=== PATIENT | male | born 1995 | race Caucasian/White ===

== ENCOUNTER 2017-01-06 04:14 | Emergency (ER) | payer BC, OTHER ==
[~2017-01-06] VITALS: Ht 175.3 cm; Wt 70.0 kg
[~2017-01-06 04:14] MED LIST: HMLI SC
[2017-01-06 04:19] VITALS: TEMP 36.8; Ht 175.3 cm; Wt 70.0 kg
[2017-01-06] MEDS ORDERED: SODIUM CHLORIDE 0.9% 500ML 500 ML IV STA (04:33)
[2017-01-06] MEDS ORDERED: MoRPHine SULFATE 4 MG/ML 1 ML CARP\\VIAL IV STA (04:33)
[2017-01-06] MEDS ORDERED: ONDANSETRON INJ 2 MG/ML 2 ML VIAL IV STA (04:33)
--- NOTE | 2017-01-06 04:39 | EMERGENCY ROOM VISIT NOTE ---
History Report prepared by Karo: Marguerite Peña Under the Supervision of: Dr. Giovanna Thompson M.D. First contact with patient: 04:28 Chief Complaint: RECTAL PAIN Stated Complaint: LARGE LUMP NEAR ANUS History of Present Illness The patient is a 21 year old male who presents to the Emergency Room with complaints of sudden rectal pain beginning shortly prior to arrival. The patient states that he has a large lump near his rectum, but that it is not draining. He states that he had the bump 4 days ago, but that the pain worsened prior to arrival. He rates the pain at a 6/10. He states that he has had a rectal abscess before. He denies having fevers. Source of History: patient Onset: shortly prior to arrival Position: other (rectum) Symptom Intensity: rated at a 6/10 Timing: other (sudden ) Associated Symptoms: No fevers Review of Systems See HPI for pertinent positives & negatives. A total of 10 systems reviewed and were otherwise negative. Past Medical & Surgical Medical Problems: (1) Diabetes Family History Diabetes mellitus Gallbladder disease Heart disease Hypertension Social History Smoking Status: Never Smoker Housing Status: lives with roommate Current/Historical Medications Scheduled Insulin Glargine (Lantus Solostar), 40 UNITS SQ QPM Insulin Lispro (Human) (Humalog), SQ AC Allergies Coded Allergies: No Known Allergies (Unverified , 01/06/17) Physical Exam Vital Signs Date Time Temp Pulse Resp B/P (MAP) Pulse Ox O2 Delivery O2 Flow Rate FiO2 01/06/17 05:58 79 15 136/80 97 Room Air 01/06/17 04:19 36.8 126 18 149/89 98 Room Air Physical Exam Vital signs reviewed. General: Well-appearing male, in no significant distress. HEENT: No scleral icterus, PERRLA, neck supple. Atraumatic. Cardiovascular: Regular rate and rhythm, no extra sounds. Pulmonary: Clear to auscultation bilaterally, normal work of breathing. Abdomen: Soft, nontender, nondistended, positive bowel sounds. Musculoskeletal: Atraumatic, no peripheral edema. Neurologic: Patient awake alert and oriented x 3, full strength in all 4 extremities. Cranial nerves 2 through 12 grossly intact. Skin: Warm, dry, no rash Rectal: 4 cm area of swelling and fluctuance at the 3 o'clock position. No obvious draining and no rectal bleed. Medical Decision & Procedures ER Provider Diagnostic Interpretation: Radiology results as stated below per my review and [facility]. CT PELVIS: 3.3 x 2.1 cm gas-containing collection in the left perianal region, which could represent a perianal abscess or sinus tract. The study is other unremarkable. Laboratory Results 01/06/17 04:38 Red Blood Count 5.22, Mean Corpuscular Volume 79.7, Mean Corpuscular Hemoglobin 28.4, Mean Corpuscular Hemoglobin Concent 35.6, Mean Platelet Volume 9.6, Neutrophils (%) (Auto) 76.7, Lymphocytes (%) (Auto) 10.5, Monocytes (%) (Auto) 11.6, Eosinophils (%) (Auto) 0.6, Basophils (%) (Auto) 0.2, Neutrophils # (Auto ) 12.51, Lymphocytes # (Auto) 1.72, Monocytes # (Auto) 1.90, Eosinophils # (Auto ) 0.10, Basophils # (Auto) 0.03 01/06/17 04:38 Test 01/06/17 04:38 01/06/17 06:02 White Blood Count 16.32 K/uL (4.8-10.8) Red Blood Count 5.22 M/uL (4.7-6.1) Hemoglobin 14.8 g/dL (14.0-18.0) Hematocrit 41.6 % (42-52) Mean Corpuscular Volume 79.7 fL (80-100) Mean Corpuscular Hemoglobin 28.4 pg (25-34) Mean Corpuscular Hemoglobin Concent 35.6 g/dl (32-36) Platelet Count 323 K/uL (130-400) Mean Platelet Volume 9.6 fL (7.4-10.4) Neutrophils (%) (Auto) 76.7 % Lymphocytes (%) (Auto) 10.5 % Monocytes (%) (Auto) 11.6 % Eosinophils (%) (Auto) 0.6 % Basophils (%) (Auto) 0.2 % Neutrophils # (Auto) 12.51 K/uL (1.4-6.5) Lymphocytes # (Auto) 1.72 K/uL (1.2-3.4) Monocytes # (Auto) 1.90 K/uL (0.11-0.59) Eosinophils # (Auto) 0.10 K/uL (0-0.5) Basophils # (Auto) 0.03 K/uL (0-0.2) RDW Standard Deviation 35.4 fL (36.4-46.3) RDW Coefficient of Variation 12.3 % (11.5-14.5) Immature Granulocyte % (Auto) 0.4 % Immature Granulocyte # (Auto) 0.06 K/uL (0.00-0.02) Anion Gap 7.0 mmol/L (3-11) Est Creatinine Clear Calc Drug Dose 114.4 ml/min Estimated GFR () 122.1 Estimated GFR (Non- 105.3 BUN/Creatinine Ratio 13.4 (10-20) Calcium Level 8.8 mg/dl (8.5-10.1) Total Bilirubin 0.9 mg/dl (0.2-1) Direct Bilirubin 0.2 mg/dl (0-0.2) Aspartate Amino Transf (AST/SGOT) 5 U/L (15-37) Alanine Aminotransferase (ALT/SGPT) 11 U/L (12-78) Alkaline Phosphatase 151 U/L (45-117) Total Protein 8.0 gm/dl (6.4-8.2) Albumin 3.3 gm/dl (3.4-5.0) Beta-Hydroxybutyric Acid 8.79 mg/dL (0.2-2.81) Bedside Glucose 341 mg/dl (70-99) Laboratory results per my review. Medications Administered Medications (Trade) Dose Ordered Sig/Emy Route Start Time Stop Time Status Last Admin Dose Admin Sodium Chloride 500 ml @ 999 mls/hr Q31M STAT IV 01/06/17 04:33 01/06/17 05:03 DC 01/06/17 04:56 999 MLS/HR Morphine Sulfate (MoRPHine SULFATE INJ) 4 mg NOW STAT IV 01/06/17 04:33 01/06/17 04:36 DC 01/06/17 04:51 4 MG Ondansetron HCl (Zofran Inj) 4 mg NOW STAT IV 01/06/17 04:33 01/06/17 04:36 DC 01/06/17 04:51 4 MG Ciprofloxacin/ Dextrose (Cipro / D5W) 400 mg NOW STAT IV 01/06/17 05:00 01/06/17 05:03 DC 01/06/17 05:13 400 MG Metronidazole (Flagyl / Nss) 500 mg NOW STAT IV 01/06/17 05:00 01/06/17 05:03 DC 01/06/17 05:13 500 MG Insulin Human Regular (novoLIN-R U-100 PER UNIT) 10 units NOW STAT SC 01/06/17 05:45 01/06/17 05:46 DC 01/06/17 06:07 10 UNITS Morphine Sulfate (MoRPHine SULFATE INJ) 2 mg NOW STAT IV 01/06/17 06:55 01/06/17 06:56 DC 01/06/17 07:01 2 MG Ketorolac Tromethamine (Toradol Inj) 30 mg NOW STAT IV 01/06/17 06:55 01/06/17 06:56 PR 01/06/17 07:01 30 MG Procedure Incision & Drainage Indication: Abscess. Location: Right perirectal area Verbal consent was obtained after the risks and benefits were explained, including but not limited to bleeding, scarring, infection, pain, and bone/joint /nerve damage. At this time, the risks of the procedure are less than the risks of NOT performing the procedure. A time out was taken and the correct patient and site identified. The skin was prepped with betadine and a sterile field set. The wound was anesthetized with 3 ml of 1% lidocaine without epinephrine. The abscess cavity was entered with a number 11 blade and purulent material and blood clot expressed. Copious irrigation was performed using saline. The wound was explored for foreign bodies and none found. Debridement was not performed. Packing placed and a sterile dressing applied. Detailed wound care instructions and signs and symptoms of worsening infection reviewed with the patient. No complications and the patient tolerated the procedure well. ED Course 0430: Past medical records reviewed. The patient was evaluated in room B2. A complete history and physical examination was performed. 0433: Ordered Zofran Inj 4 mg IV, Morphine Sulfate 4 mg IV, Sodium Chloride 500 ml @ 999 mls/hr IV. 0500: Ordered Metronidazole 500 mg IV, Ciprofloxacin/Dextrose 400 mg IV. 0545: Ordered Insulin Human Regular 10 units SC. 0630: Ordered Lidocaine HCl 20 ml INFIL. Medical Decision Differentials include: perirectal abscess, hemorrhoid, prostatitis, and rectal fissure. This patient was evaluated and appeared to be in some discomfort. Physical examination is consistent with a perirectal abscess for which the patient has had before. A CT scan of the pelvis was performed with IV contrast. This study is consistent with a perirectal abscess. Laboratory work reveals a leukocytosis. The patient is hyperglycemic, he is an insulin-dependent diabetic who admits to poor glycemic control at times. Patient was given IV Cipro and IV Flagyl. He did require IV morphine and Zofran for symptomatic control. An I&D was performed at the bedside. Please see my procedure note above. Culture was sent. Patient was discharged with a prescription for 1 week of Cipro and Flagyl. He was given a short prescription for Percocet. Patient will follow-up with his physician or general surgeon upon return home to [place] and 1-2 days. He was given wound care instructions. Patient will return to the ER for worsening of symptoms or any medical concerns. Medication Reconcilliation Current Medication List: was personally reviewed by me Blood Pressure Screening Patient's blood pressure: Elevated blood pressure Blood pressure disposition: Elevated BP felt to be situational Impression Primary Impression: Perirectal abscess Scribe Attestation The scribe's documentation has been prepared under my direction and personally reviewed by me in its entirety. I confirm that the note above accurately reflects all work, treatment, procedures, and medical decision making performed by me. Departure Information Referrals No Doctor, Assigned (PCP) Patient Instructions [facility]
[2017-01-06] MEDS ORDERED: OPTIRAY 320 IV PRN (04:45)
[2017-01-06] MEDS ORDERED: INSU100I SQ (04:50)
[2017-01-06] MEDS ORDERED: INSDGIPEN SQ (04:52)
[2017-01-06 04:54] LABS: HEMATOCRIT 41.6 % (42-52); MEAN CELL VOLUME 79.7 fL (80-100); MEAN CORPUSCULAR HEMOGLOBIN 28.4 pg (25-34); MEAN CORPUSCULAR HGB CONC 35.6 g/dl (32-36); MEAN PLATELET VOLUME 9.6 fL (7.4-10.4); PLATELET COUNT 323 K/uL (130-400); RED BLOOD COUNT 5.22 M/uL (4.7-6.1); WHITE BLOOD COUNT 16.32 K/uL (4.8-10.8)
[2017-01-06] MEDS ORDERED: CIPROFLOXACIN 400MG / 200ML D5W IV STA (05:00)
[2017-01-06] MEDS ORDERED: METRONIDAZOLE 500MG / 100ML NSS IV STA (05:00)
[2017-01-06 05:22] LABS: BUN/CREATININE RATIO 13.4 (10-20); CALCIUM 8.8 mg/dl (8.5-10.1); CREATININE 1.02 mg/dl (0.60-1.40); POTASSIUM 4.2 mmol/L (3.5-5.1)
[2017-01-06 05:23] LABS: BASO % 0.2 %; BASO ABS # 0.03 K/uL (0-0.2); COMPLETE YES; EOS % 0.6 %; IG% 0.4 %; LYMPH % 10.5 %; LYMPH ABS # 1.72 K/uL (1.2-3.4); MONO % 11.6 %; NEUT % 76.7 %
[2017-01-06 05:43] LABS: BETA-HYDROXYBUTYRATE 8.79 mg/dL (0.2-2.81)
[2017-01-06] MEDS ORDERED: NovoLIN-R INSULIN PER UNIT CHARGE SC STA (05:45)
[2017-01-06] MEDS ORDERED: XYLOCAINE 1%/SOD BICARB 20 ML VIAL INFIL ONE (06:30)
[2017-01-06] MEDS ORDERED: KETOROLAC TROMETHAMINE 30 MG/ML VIAL IV STA (06:55)
[2017-01-06] MEDS ORDERED: MoRPHine SULFATE 2 MG/ML CARP IV STA (06:55)
--- NOTE | 2017-01-06 07:12 | DIAGNOSTIC IMAGING REPORT ---
CT SCAN OF THE PELVIS WITH IV CONTRAST CLINICAL HISTORY: Perianal pain. Palpable lump. COMPARISON STUDY: No priors. TECHNIQUE: Following the IV administration of 92 cc of Optiray 320, CT scan of the pelvis is performed from the pelvic inlet to the proximal femora. Images are reviewed in the axial, sagittal, and coronal planes. IV contrast was administered without complication. A dose lowering technique was utilized adhering to the principles of ALARA. CT DOSE: 229.80 mGy.cm FINDINGS: The bladder, prostate, and seminal vesicles are normal as visualized. There is trace free fluid in the pelvis. The visualized loops of small bowel and colon are normal in caliber. The appendix is normal as visualized. No intraperitoneal free air is seen. There is no pelvic sidewall or inguinal lymphadenopathy. There is significant duration of the left perianal/peroneal soft tissues. There is a fluid collection containing foci of gas in the left perianal/infra-anal soft tissues from the 1:00 to 5:00 position with surrounding induration seen on image #250. This measures 2.8 x 2.0 cm and is typical appearance for abscess. There is dermal thickening along the overlying left gluteal crease with no fistulous tract clearly identified. This is located well below the levator musculature. The bony pelvis is intact. No destructive osseous lesion is seen. The iliac vessels appear patent. IMPRESSION: 1. Findings are consistent with a left-sided perianal abscess as above with surrounding cellulitis. 2. No fistulous tract is clearly seen. 3. The pelvic viscera are normal in appearance. 4. Trace free fluid in the pelvis is nonspecific and likely reactive. Electronically signed by: Yosef Hernandez M.D. 01/06/2017 7:11 AM Dictated Date/Time: 01/06/2017 7:06 AM
[2017-01-06] MEDS ORDERED: CIPR-255 PO (07:24)
[2017-01-06] MEDS ORDERED: METR-163 PO (07:24)
[2017-01-06] MEDS ORDERED: OXYC-57 PO (07:24)
[2017-01-06 07:38] VITALS: BP 132/78; PULSE 93; O2SAT 95
== END 2017-01-06 07:39 | disposition home or self-care (01) ==
LOC: C.EDB 04:15
DX: K61.1 Rectal abscess (principal); E11.9 Type 2 diabetes mellitus without complications; Z83.3 Family history of diabetes mellitus; Z82.49 Family history of ischemic heart disease and other diseases of the circulatory system; Z79.4 Long term (current) use of insulin

== ENCOUNTER 2018-12-31 23:48 | Inpatient (IN) ==
[2019-01-01] MEDS ORDERED: KETOROLAC 30 MG/ML VIAL IV STA (00:04)
[2019-01-01] MEDS ORDERED: ONDANSETRON INJ 2 MG/ML 2 ML VIAL IV STA (00:04)
[2019-01-01] MEDS ORDERED: SODIUM CHLORIDE 0.9% 1000ML 1,000 ML IV SCH (00:15)
[2019-01-01] MEDS: HYDROmorphone INJ 1 MG/ML SYRINGE IV PRN ×2 (00:24→01:38)
[2019-01-01 00:26] LABS: Basophils # (auto) 0.03 K/uL (0-0.2); Basophils % (auto) 0.2 %; Eosinophils # (auto) 0.04 K/uL (0-0.5); Eosinophils % (auto) 0.2 %; Hematocrit (blood only) 40.7 % (42-52); Hemoglobin 14.1 g/dL (14.0-18.0); Immature Granulocytes # (auto) 0.09 K/uL (0.00-0.02); Immature Granulocytes % (auto) 0.5 %; Lymphocytes # (auto) 2.29 K/uL (1.2-3.4); Lymphocytes % (auto) 11.9 %; Mean Corpuscular Hemoglobin 28.5 pg (25-34); Mean Corpuscular Hgb Conc 34.6 g/dL (32-36); Mean Corpuscular Volume 82.2 fL (80-100); Mean Platelet Volume 9.1 fL (7.4-10.4); Monocytes % (auto) 7.8 %; Neutrophils # (auto) 15.26 K/uL (1.4-6.5); Neutrophils % (auto) 79.4 %; Platelet Count 454 K/uL (130-400); RDW Coefficient of Variation 12.9 % (11.5-14.5); RDW Standard Deviation 39.3 fL (36.4-46.3); Red Blood Count 4.95 M/uL (4.7-6.1); White Blood Count 19.21 K/uL (4.8-10.8)
[2019-01-01 01:02] LABS: Alanine Aminotransferase 11 U/L (12-78); Albumin Globulin Ratio 0.5 (0.9-2); Alkaline Phosphatase 199 U/L (45-117); Aspartate Aminotransferase < 3 U/L (15-37); BUN Creatinine Ratio 14.2 (10-20); Bilirubin,Total 0.6 mg/dl (0.2-1); Blood Urea Nitrogen 15 mg/dl (7-18); Calcium 9.4 mg/dl (8.5-10.1); Carbon Dioxide 26 mmol/L (21-32); Chloride 90 mmol/L (98-107); Creatinine Clr Calc Pharmacy 105.7 ml/min; Est GFR (Non-African American) 102.6; Globulin 5.7 gm/dl (2.5-4.0); Glucose 434 mg/dl (70-99); Lipase 68 U/L (73-393); Potassium 4.2 mmol/L (3.5-5.1); Sodium 128 mmol/L (136-145); Total Protein 8.7 gm/dl (6.4-8.2)
[2019-01-01] MEDS ORDERED: GADOBUTROL 65ML VIAL IV PRN (01:20)
[2019-01-01 01:21] LABS: Beta-Hydroxybutyrate 33.51 mg/dl (0.2-2.81)
[2019-01-01] MEDS ORDERED: NovoLIN-R INSULIN PER UNIT CHARGE IV STA ×2 (01:24→02:23)
[2019-01-01] MEDS ORDERED: SODIUM CHLORIDE 0.9% 1000ML 1,000 ML IV ONE (01:24)
[2019-01-01] MEDS ORDERED: LEVOFLOXACIN/D5W 750 MG/150 ML BAG IV STA (03:05)
[2019-01-01] MEDS ORDERED: VANCOMYCIN CONSULT ACTIVE PRN (03:05)
[2019-01-01] MEDS ORDERED: PIPERACILL/TAZOBAC CONSULT ACTIVE PRN (03:05)
[2019-01-01] MEDS ORDERED: PIPERACILLIN/TAZOBACTAM 4.5 GM/120 ML BAG IV ONE (03:05)
[2019-01-01] MEDS ORDERED: VANCOMYCIN HCL 1,250 MG in SODIUM CHLORIDE 0.9% 500 ML IV ONE (03:05)
[2019-01-01] MEDS ORDERED: IOVERSOL 100ml IV PRN (03:27)
[2019-01-01 03:34] LABS: Creatine Kinase 18 U/L (39-308)
--- NOTE | 2019-01-01 04:02 | History & Physical Report ---
Date of Service January 01, 2019 Assessment & Plan (1) Hyperglycemia: Terrence is a 23-year-old with a history of type 1 diabetes mellitus who presents to the emergency department due to a 1 week history of back pain that radiates into his legs. ED Course: 1 mg Dilaudid x2, 30 mg IV Toradol, 4 mg IV Zofran, 2 L normal saline bolus, 20 units IV insulin, 4.5 g IV Zosyn, 750 milligrams IV Levaquin, 1250 mg IV vancomycin Hyperglycemia, on a background of type 1 diabetes mellitus -Admit to med/surg -Glucose level 434 on presentation to ER - decreased to 251 by the time of my examination -Beta hydroxybutyric acid 33.5 -Suspect that this is likely related to recent steroid usage -Patient normally takes 40 units of long-acting insulin qhs, and also has a sliding scale insulin -We will continue home his regimen of insulin -> 20 units Lantus twice daily and SSI ordered. BSG AC/HS. Sacroiliitis -no red flag symptoms or signs to suggest cauda equina syndrome -MRI of lumbar spine suggestive of sacroiliitis, patient does not have a history of the same -CT abdomen and pelvis also showed sclerosis and erosive changes in b/l iliac bones along SI joints, consistent with sacroiliitis -Patient has elevated inflammatory markers, including elevated ESR >90, CRP of 15.1 and platelets of 454 -CK negative -Patient also has leukocytosis of 19.21 and subsequently had blood cultures drawn in the ER (suspect this is elevated secondary to steroid usage as opposed to infection) -Patient has received a dose of IV Zosyn, Levaquin, vancomycin -Given his MRI/CT did not show any evidence of infection/abscess, this is unlikely to be secondary to infection. Will hold off on further antibiotics -Start naproxen 500 mg twice daily for sacroiliitis -Given the patient's history of perianal abscess and fistula, in addition to sacroiliitis - patient will likely need a full rheumatological work up Hyponatremia -Sodium on arrival 128, corrected to 133 for elevated glucose reading of 434 -Recheck BMP tomorrow. Labs ordered for noon. CODE STATUS: Full DVT prophylaxis: SCDs Disposition: Admit to med/surg (2) Diabetes: (3) Sacroiliitis: (4) Leukocytosis: (5) Hyponatremia: (6) Elevated erythrocyte sedimentation rate: (7) Elevated C-reactive protein (CRP): History of Present Illness Chief Complaint: Back pain Primary Care Provider: NO PCP Terrence is a 23-year-old with a history of type 1 diabetes mellitus who presents to the emergency department due to a 1 week history of back pain that radiates into his legs. Terrence states that he woke up with this pain approximately 1 week ago. He states that the pain is located in his low back, as well as in his glutes, quads, hamstrings and calves. He states that he was unable to get out of bed due to the pain. He reports that he presented to [facility], who gave him a course of steroids and Flexeril. He states that he took his last pill of steroids this morning. He reports that this helped his symptoms, however they worsened again this morning. He denies any fever or chills. He states that he is able to stand, however his pain is worse with movement. He denies any weakness or numbness of his legs. He denies any difficulty with fecal incontinence or urinary retention. He denies any increase in activity prior to the start of his pain. He denies any recent tick bites. He states he has otherwise been well. Past medical history: Type 1 diabetes mellitus, perianal abscess, and fistula Past surgical history: Perianal fistula surgery - placement of seton that is due to be removed this summer Medications: Insulin Allergies: No known drug allergies Family history: No family history of inflammatory conditions, or arthritis Social history: Non-smoker, does not use recreational drugs. Drinks alcohol socially, has not had any alcohol in the past 1 week. Allergies Allergy/AdvReac Type Severity Reaction Status Date / Time No Known Allergies Allergy Unverified 01/01/19 00:26 Home Medications Home Medications Medication Instructions Recorded Confirmed Type insulin degludec (U- 100) 100 10 units SQ DAILY 11/09/18 01/01/19 History unit/mL subcutaneous solution insulin lispro (U- 100) 100 10 units SQ BID 11/09/18 01/01/19 History unit/mL subcutaneous pen cyclobenzaprine 10 mg PO BID PRN 01/01/19 01/01/19 History Past Med/Surg History Medical History Abscess, scrotum Perirectal abscess Wound, incised Family History Brother Cancer Grandfather (Maternal) Stroke Social History Preferred Language: Sinhala Communication Ability: Effective marital status: Single current occupational status: student Feels Safe at Home: Yes Smoking Status: Never smoker Hx Alcohol Use: Yes Hx Substance Use: No Review of Systems Constitutional: no fever, no chills and no anorexia Ear, Nose, Mouth, Throat: no nasal congestion and no sore throat Respiratory: no cough, no dyspnea and no wheezing Cardiovascular: no chest pain, no palpitations, no lightheadedness, no syncope and no edema Gastrointestinal: no abdominal pain, no nausea, no vomiting and no change in bowel habits Genitourinary: no difficulty urinating and no urinary incontinence Musculoskeletal: + back pain; no neck pain and no muscle weakness Integumentary: no rash and no lesions Neurologic: no loss of sensation Physical Exam Constitutional: WD/WN, vitals as above Eyes: PERRL, conjunctivae normal, anicteric sclerae ENMT: external ear and nose normal, oropharynx normal Respiratory: normal respiratory effort, lungs clear to auscultation Cardiovascular: RRR, no murmur, no edema Gastrointestinal (Abdomen): normal bowel sounds, soft, nontender, no hepatosplenomegaly Musculoskeletal: no cyanosis or clubbing, extremities motor strength 5/5 Neurologic: patellar DTR's 2+ bilat, sensation intact and PERRL, EOMI, accommodation nl, no face palsy, no dysarthria moves all extremities; no focal motor deficits Psychiatric: A+Ox3, euthymic affect Results & Data Vital Signs (Past 12 Hours) Vital Signs Temp Pulse Pulse Resp BP BP Pulse Ox 01/01/19 03:08 89 14 113/71 96 01/01/19 01:40 100 H 100 H 18 145/85 H 97 12/31/18 23:51 37.3 C 116 H 18 141/81 H 96 Supervising Physician Co-Signing Physician Notes Patient was seen and examined by me personally. I reviewed the chart, the orders and discussed the case in detail with Dr. Carrie Marquez MD. I read this H&P and agree with its contents to entirety. Resident Activity Tracking Resident Involvement: Resident Care Provided Care Provided: Adult [facility] Medicine
--- NOTE | 2019-01-01 04:57 | Emergency Department Note ---
Entered by Cherelle Erickson acting as a scribe for Baldo Rees MD History of Present Illness General Chief complaint: Back Injury/Pain Stated complaint: SEVERE LWR BACK AND LEG PAIN Source: patient History of Present Illness Onset (ago): day(s) 1 Location: back (lower) Radiation: extremity (bilateral lower) and other (buttocks) Pain Consistency: + other (worsening ) Maximum Pain Intensity: 7 Quality: + other (throbbing) Exacerbated By: + movement Associated symptoms: + other (positive decreased feeling in thighs; positive leg weakness); no diaphoresis and no fever/chills Treatments prior to arrival: other (Acetaminophen) The patient is a 23 year old male who presents to the Emergency Room with co mplaints of worsening lower back pain that began 1 day prior to arrival. The patient states that his pain began 1 week ago. He states that at this time he went to [facility] and was given steroids and a muscle relaxer for his symptoms, but states that these only somewhat relieved his symptoms. The patient states that beginning yesterday, the pain began to go all the way down his buttocks and legs. He describes his pain as throbbing, and states that movement exacerbates his pain. The patient reports decreased feeling in his thighs and leg weakness. He denies fevers and sweating. The patient states that he took Acetaminophen for his symptoms today. Home Medications Home Medications Medication Instructions Recorded Confirmed Type insulin lispro 100) 100 unit/mL See Rx Instructions .ROUTE .COMPLEX 11/09/18 01/01/19 History subcutaneous pen Tresiba FlexTouch U-200 40 unit SUBCUT HS 01/01/19 01/01/19 History cyclobenzaprine 10 mg PO BID PRN 01/01/19 01/01/19 History acetaminophen [Tylenol Arthritis 650 mg PO Q8H #60 tab 01/02/19 Rx Pain] lidocaine 1 patch TOP DAILY #15 ea 01/02/19 Rx naproxen 500 mg PO BID #30 tab 01/02/19 Rx Allergies Allergy/AdvReac Type Severity Reaction Status Date / Time No Known Allergies Allergy Unverified 01/01/19 00:26 Past Med/Surg History Medical History Abscess, scrotum Perirectal abscess Wound, incised Family History Brother Cancer Grandfather (Maternal) Stroke Social History Preferred Language: Yi Communication Ability: Effective Beliefs That Will Affect Care: None marital status: Single Current Living Situation: Other Current Living Situation Comment: roommates, student current occupational status: student Feels Safe at Home: Yes Smoking Status: Never smoker Hx Alcohol Use: Yes Hx Substance Use: No Review of Systems See HPI for pertinent positives & negatives. and A total of 10 systems reviewed and were otherwise negative Physical Exam Vital Signs Vital Signs - 24 hr 12/31/18 23:51 01/01/19 01:40 01/01/19 03:08 Temperature 37.3 C Temperature Source Oral Sepsis Recent Fever Within 48 Hours No Sepsis Action Taken by Nursing No Action Required Pulse Rate 116 H 100 H Pulse Rate [Finger] 100 H 89 Respiratory Rate 18 18 14 Respiratory Effort / Characteristics Non-Labored Spontaneous Respiratory Depth Normal Respiratory Pattern Regular Blood Pressure 141/81 H Blood Pressure [Right Arm] 145/85 H 113/71 Blood Pressure Mean 101 Blood Pressure Mean [Right Arm] 105 85 Blood Pressure Position Sitting Blood Pressure Position [Right Arm] Lying Pulse Oximetry 96 97 96 Oxygen Delivery Method Room Air Room Air Room Air 01/01/19 04:11 Temperature Temperature Source Sepsis Recent Fever Within 48 Hours Sepsis Action Taken by Nursing Pulse Rate Pulse Rate [Finger] 97 H Respiratory Rate 18 Respiratory Effort / Characteristics Respiratory Depth Respiratory Pattern Blood Pressure Blood Pressure [Right Arm] 132/83 Blood Pressure Mean Blood Pressure Mean [Right Arm] 99 Blood Pressure Position Blood Pressure Position [Right Arm] Pulse Oximetry 97 Oxygen Delivery Method Room Air GENERAL: Awake, alert, well-appearing, in no acute distress. HENT: Normocephalic, atraumatic. Oropharynx unremarkable. EYES: Normal conjunctiva. Sclera non-icteric. NECK: Supple. No nuchal rigidity. FROM. No JVD. RESPIRATORY: Clear to auscultation. CARDIAC: Regular rate, normal rhythm. Extremities warm and well perfused. Pulses equal. ABDOMEN: Soft, non-distended. No tenderness to palpation. No rebound or guarding. No masses. RECTAL: Deferred. MUSCULOSKELETAL: Chest examination reveals no tenderness. The back is s ymmetrical on inspection without obvious abnormality. Difficult time standing on tip toes. Numbness bilaterally to the anterior thighs. There is no CVA tenderness to palpation. No joint edema. LOWER EXTREMITIES: Calves are equal size bilaterally and non-tender. No edema. No discoloration. NEURO: Normal sensorium. No sensory or motor deficits noted. SKIN: No rash or jaundice noted. Course 2352: Past medical records reviewed. The patient was evaluated in room B2. A complete history and physical exam was performed. 0143: I checked on and updated the patient on all results. 0316: I discussed the case with Dr. Shah[facility] Hospitalist who accepts the patient for further evaluation. Administered Medications Discontinued Medications Acetaminophen (Tylenol) 650 mg PO Q4H JC Stop: 01/31/19 15:59 Last Admin: 01/02/19 04:57 Dose: 650 mg Documented by: [id number] Admin: 01/01/19 23:32 Dose: 650 mg Documented by: [id number] Admin: 01/01/19 19:45 Dose: 650 mg Documented by: [id number] Admin: 01/01/19 16:20 Dose: 650 mg Documented by: [id number] Acetaminophen (Tylenol) 650 mg PO Q8H JC Stop: 02/01/19 13:59 Last Admin: 01/02/19 08:10 Dose: 650 mg Documented by: [id number] Cosigned by: [id number] Gadobutrol (Gadavist 65ml) 6.5 ml IV ONCE PRN PRN Reason: Interaction Checking Stop: 01/05/19 01:19 Last Admin: 01/01/19 01:21 Dose: 6.5 ml Documented by: [id number] Hydromorphone HCl (Dilaudid) 1 mg IV Q15M PRN PRN Reason: Pain Stop: 01/15/19 00:03 Last Admin: 01/01/19 01:38 Dose: 1 mg Documented by: [id number] Admin: 01/01/19 00:24 Dose: 1 mg Documented by: [id number] Sodium Chloride (Nss 1000ml) 1,000 mls @ 999 mls/hr IV .Q1H1M JC Stop: 01/01/19 01:15 Last Infusion: 01/01/19 02:31 Dose: 0 mls/hr Documented by: [id number] Infusion: 01/01/19 01:39 Dose: 999 mls/hr Documented by: [id number] Infusion: 01/01/19 00:31 Dose: 0 mls/hr Documented by: [id number] Admin: 01/01/19 00:19 Dose: 999 mls/hr Documented by: [id number] Sodium Chloride (Nss 1000ml) 1,000 mls @ 999 mls/hr IV .Q1H1M ONE Stop: 01/01/19 02:24 Last Infusion: 01/01/19 03:11 Dose: 0 mls/hr Documented by: [id number] Admin: 01/01/19 02:10 Dose: 999 mls/hr Documented by: [id number] Levofloxacin/Dextrose (Levaquin/D5w) 750 mg in 150 mls @ 100 mls/hr IV NOW STA Stop: 01/01/19 04:34 Last Infusion: 01/01/19 06:43 Dose: 0 mls/hr Documented by: [id number] Admin: 01/01/19 04:11 Dose: 100 mls/hr Documented by: [id number] Vancomycin HCl 1,250 mg/ (Sodium Chloride) 525 mls @ 200 mls/hr IV NOW ONE Stop: 01/01/19 05:42 Last Infusion: 01/01/19 06:49 Dose: 0 mls/hr Documented by: [id number] Admin: 01/01/19 04:11 Dose: 200 mls/hr Documented by: [id number] Piperacillin Sod/Tazobactam Sod (Zosyn) 4.5 gm in 120 mls @ 240 mls/hr IV NOW ONE Stop: 01/01/19 03:34 Last Infusion: 01/01/19 04:06 Dose: 0 mls/hr Documented by: [id number] Admin: 01/01/19 03:36 Dose: 240 mls/hr Documented by: [id number] Methylprednisolone 40 mg/ (Syringe) 0.64 mls @ 1.5 mls/min IV ONE ONE Stop: 01/02/19 10:16 Last Admin: 01/02/19 10:55 Dose: 1.5 mls/min Documented by: [id number] Cosigned by: [id number] Insulin Aspart (Novolog Flexpen) 0 units SC ACHS JC Stop: 01/31/19 07:29 Last Admin: 01/02/19 12:12 Dose: 13 units Documented by: [id number] Cosigned by: [id number] Admin: 01/02/19 09:19 Dose: 6 units Documented by: [id number] Cosigned by: [id number] Admin: 01/01/19 20:53 Dose: 6 units Documented by: [id number] Cosigned by: [id number] Admin: 01/01/19 17:13 Dose: 13 units Documented by: [id number] Cosigned by: [id number] Admin: 01/01/19 12:30 Dose: 21 units Documented by: [id number] Cosigned by: [id number] Admin: 01/01/19 08:45 Dose: 11 units Documented by: [id number] Cosigned by: [id number] Insulin Glargine (Lantus Solostar Pen) 20 units SC BID [facility] Stop: 01/31/19 08:59 Last Admin: 01/01/19 08:43 Dose: 20 units Documented by: [id number] Cosigned by: [id number] Insulin Glargine (Lantus Solostar Pen) 40 units SC HS [facility] Stop: 01/31/19 16:29 Last Admin: 01/01/19 17:14 Dose: 40 units Documented by: [id number] Cosigned by: [id number] Insulin Human Regular (Novolin R U-100 Per Unit) 20 units IV NOW STA Stop: 01/01/19 01:25 Last Admin: 01/01/19 02:09 Dose: 20 units Documented by: [id number] Cosigned by: [id number] Insulin Human Regular (Novolin R U-100 Per Unit) 10 units IV NOW STA Stop: 01/01/19 02:24 Last Admin: 01/01/19 03:41 Dose: Not Given Documented by: [id number] Ioversol (Optiray 320 100ml) 100 ml IV ONCE PRN PRN Reason: Interaction Checking Stop: 01/05/19 03:26 Last Admin: 01/01/19 03:27 Dose: 92 ml Documented by: [id number] Ketorolac Tromethamine (Toradol) 30 mg IV NOW STA Stop: 01/01/19 00:05 Last Admin: 01/01/19 00:19 Dose: 30 mg Documented by: [id number] Ketorolac Tromethamine (Toradol) 15 mg IV Q6H PRN PRN Reason: Pain Stop: 01/06/19 14:29 Last Admin: 01/01/19 15:01 Dose: 15 mg Documented by: [id number] Lidocaine (Lidoderm 5%) 1 patch TD QAM JC Stop: 01/31/19 14:59 Last Admin: 01/02/19 08:11 Dose: 1 patch Documented by: [id number] Cosigned by: [id number] Admin: 01/01/19 16:21 Dose: 1 patch Documented by: [id number] Miscellaneous (Remove Lidoderm Patch) 1 ea N/A DAILY@2100 JC Stop: 01/31/19 20:59 Last Admin: 01/01/19 20:54 Dose: 1 ea Documented by: [id number] Naproxen (Naprosyn) 500 mg PO BID JC Stop: 01/31/19 08:59 Last Admin: 01/02/19 08:09 Dose: 500 mg Documented by: [id number] Cosigned by: [id number] Admin: 01/01/19 20:53 Dose: 500 mg Documented by: [id number] Admin: 01/01/19 08:41 Dose: 500 mg Documented by: [id number] Ondansetron HCl (Zofran) 4 mg IV NOW STA Stop: 01/01/19 00:05 Last Admin: 01/01/19 00:19 Dose: 4 mg Documented by: [id number] Potassium Chloride (Klor-Con M20) 40 meq PO NOW STA Stop: 01/02/19 06:51 Last Admin: 01/02/19 08:08 Dose: 40 meq Documented by: [id number] Cosigned by: [id number] Medical Decision Making Differential Diagnosis Differential diagnoses includes but is not limited to lumbar radiculopathy, muscle strain, fracture, cauda equina, mass, and disc herniation. Medical Records Attestation: I reviewed the patient's medical records. Home Medications Current Medication List: was personally reviewed by me Laboratory Data Attestation: I reviewed the patient's lab results. Result diagrams: 01/02/19 05:36 01/02/19 05:36 Lab Results 01/01/19 01/01/19 01/01/19 Range/Units 00:11 00:11 00:11 WBC 19.21 H (4.8-10.8) K/uL RBC 4.95 (4.7-6.1) M/uL Hgb 14.1 (14.0-18.0) g/dL Hct 40.7 L (42-52) % MCV 82.2 (80-100) fL MCH 28.5 (25-34) pg MCHC 34.6 (32-36) g/dL RDW Std Deviation 39.3 (36.4-46.3) fL RDW Coeff of Pablo 12.9 (11.5-14.5) % Plt Count 454 H (130-400) K/uL MPV 9.1 (7.4-10.4) fL Immature Gran % (Auto) 0.5 % Neut % (Auto) 79.4 % Lymph % (Auto) 11.9 % [place] % (Auto) 7.8 % Eos % (Auto) 0.2 % Baso % (Auto) 0.2 % Immature Gran # (Auto) 0.09 H (0.00-0.02) K/uL Neut # (Auto) 15.26 H (1.4-6.5) K/uL Lymph # (Auto) 2.29 (1.2-3.4) K/uL [place] # (Auto) 1.50 H (0.11-0.59) K/uL Eos # (Auto) 0.04 (0-0.5) K/uL Baso # (Auto) 0.03 (0-0.2) K/uL ESR > 90 H (0-14) mm/hr Sodium 128 L (136-145) mmol/L Potassium 4.2 (3.5-5.1) mmol/L Chloride 90 L (98-107) mmol/L Carbon Dioxide 26 (21-32) mmol/L Anion Gap 12.0 H (3-11) BUN 15 (7-18) mg/dl Creatinine 1.03 (0.6-1.4) mg/dl Est Cr Clr Drug Dosing 105.7 ml/min Est GFR ( Amer) 119.0 Est GFR (Non-Af Amer) 102.6 BUN/Creatinine Ratio 14.2 (10-20) Glucose 434 H* (70-99) mg/dl POC Glucose (70-99) Calcium 9.4 (8.5-10.1) mg/dl Total Bilirubin 0.6 (0.2-1) mg/dl AST < 3 L (15-37) U/L ALT 11 L (12-78) U/L Alkaline Phosphatase 199 H (45-117) U/L Total Creatine Kinase 18 L (39-308) U/L C-Reactive Protein 15.10 H (0-0.29) mg/dl Total Protein 8.7 H (6.4-8.2) gm/dl Albumin 3.0 L (3.4-5.0) gm/dl Globulin 5.7 H (2.5-4.0) gm/dl Albumin/Globulin Ratio 0.5 L (0.9-2) Lipase 68 L (73-393) U/L Beta-Hydroxybutyric Acd 33.51 H (0.2-2.81) mg/dl 01/01/19 01/01/19 01/01/19 Range/Units 02:01 02:41 03:11 WBC (4.8-10.8) K/uL RBC (4.7-6.1) M/uL Hgb (14.0-18.0) g/dL Hct (42-52) % MCV (80-100) fL MCH (25-34) pg MCHC (32-36) g/dL RDW Std Deviation (36.4-46.3) fL RDW Coeff of Pablo (11.5-14.5) % Plt Count (130-400) K/uL MPV (7.4-10.4) fL Immature Gran % (Auto) % Neut % (Auto) % Lymph % (Auto) % [place] % (Auto) % Eos % (Auto) % Baso % (Auto) % Immature Gran # (Auto) (0.00-0.02) K/uL Neut # (Auto) (1.4-6.5) K/uL Lymph # (Auto) (1.2-3.4) K/uL [place] # (Auto) (0.11-0.59) K/uL Eos # (Auto) (0-0.5) K/uL Baso # (Auto) (0-0.2) K/uL ESR (0-14) mm/hr Sodium (136-145) mmol/L Potassium (3.5-5.1) mmol/L Chloride (98-107) mmol/L Carbon Dioxide (21-32) mmol/L Anion Gap (3-11) BUN (7-18) mg/dl Creatinine (0.6-1.4) mg/dl Est Cr Clr Drug Dosing ml/min Est GFR ( Amer) Est GFR (Non-Af Amer) BUN/Creatinine Ratio (10-20) Glucose (70-99) mg/dl POC Glucose 415 H* 325 H* 270 H (70-99) Calcium (8.5-10.1) mg/dl Total Bilirubin (0.2-1) mg/dl AST (15-37) U/L ALT (12-78) U/L Alkaline Phosphatase (45-117) U/L Total Creatine Kinase (39-308) U/L C-Reactive Protein (0-0.29) mg/dl Total Protein (6.4-8.2) gm/dl Albumin (3.4-5.0) gm/dl Globulin (2.5-4.0) gm/dl Albumin/Globulin Ratio (0.9-2) Lipase (73-393) U/L Beta-Hydroxybutyric Acd (0.2-2.81) mg/dl 01/01/19 Range/Units 03:40 WBC (4.8-10.8) K/uL RBC (4.7-6.1) M/uL Hgb (14.0-18.0) g/dL Hct (42-52) % MCV (80-100) fL MCH (25-34) pg MCHC (32-36) g/dL RDW Std Deviation (36.4-46.3) fL RDW Coeff of Pablo (11.5-14.5) % Plt Count (130-400) K/uL MPV (7.4-10.4) fL Immature Gran % (Auto) % Neut % (Auto) % Lymph % (Auto) % [place] % (Auto) % Eos % (Auto) % Baso % (Auto) % Immature Gran # (Auto) (0.00-0.02) K/uL Neut # (Auto) (1.4-6.5) K/uL Lymph # (Auto) (1.2-3.4) K/uL [place] # (Auto) (0.11-0.59) K/uL Eos # (Auto) (0-0.5) K/uL Baso # (Auto) (0-0.2) K/uL ESR (0-14) mm/hr Sodium (136-145) mmol/L Potassium (3.5-5.1) mmol/L Chloride (98-107) mmol/L Carbon Dioxide (21-32) mmol/L Anion Gap (3-11) BUN (7-18) mg/dl Creatinine (0.6-1.4) mg/dl Est Cr Clr Drug Dosing ml/min Est GFR ( Amer) Est GFR (Non-Af Amer) BUN/Creatinine Ratio (10-20) Glucose (70-99) mg/dl POC Glucose 251 H (70-99) Calcium (8.5-10.1) mg/dl Total Bilirubin (0.2-1) mg/dl AST (15-37) U/L ALT (12-78) U/L Alkaline Phosphatase (45-117) U/L Total Creatine Kinase (39-308) U/L C-Reactive Protein (0-0.29) mg/dl Total Protein (6.4-8.2) gm/dl Albumin (3.4-5.0) gm/dl Globulin (2.5-4.0) gm/dl Albumin/Globulin Ratio (0.9-2) Lipase (73-393) U/L Beta-Hydroxybutyric Acd (0.2-2.81) mg/dl Imaging Data Radiologist's Impression: Radiology results as stated below per my review and the radiologist's interpretation: MRI L SPINE: No evidence of lumbar spine fracture or epidural abscess. Intervertebral disks and vertebral body heights are maintained. No spinal canal or foraminal stenosis. There is STIR hyperintensity and enhancement at sacrum and left iliac bone, best visualized on left but also involving right aspect of sacrum inferiorly, seen only on sagittal images and incompletely evaluated. Correlate clinically for sacroiliitis and consider dedicated imaging of the sacroiliac joints. Urinary bladder is distended. Radiologist: Kip Garcia MD Study ready at 01:48 and initial results transmitted at 02:57 Blood Pressure Blood Pressure Findings: Normal blood pressure MDM Narrative This is a 23-year-old male who presents emergency department complaining of bilateral leg weakness as well as not feeling well. The patient is a type I diabetic and had recently been placed on steroids. His blood sugar was found to be grossly elevated therefore he was given a normal saline bolus x2 as well as insulin. Repeat examination revealed improvement in the patient's symptoms. Based on the patient's presentation as well as the large elevation in his white blood cell count as well as ESR he was sent for an MRI of the lumbar spine. This does not show any evidence of abscess because of the large elevation his white blood cell count however blood cultures were obtained and the patient was started on Zosyn Levaquin as well as vancomycin. Repeat examination revealed improvement the patient's symptoms. I did discuss the case with the hospitalist who agreed to admit the patient. Impression & Plan Leukocytosis, Hyponatremia, Hyperglycemia, Diabetes, Sacroiliitis Critical Care Time I have personally spent greater than 30 minutes of critical care time in the direct management of this patient. This includes bedside care, interpretation of diagnostic studies, and testing, discussion with consultants, patient, and family members, and other required patient management activities. This 30 minutes is in excess of all separately billable procedures. Discharge Plan Visit Data *Final* Discharge Date/Time: 01/01/19 05:09 Chief Complaint: Back Injury/Pain Stated Complaint: SEVERE LWR BACK AND LEG PAIN ED Provider: Baldo Rees Discharge Problem: Leukocytosis, Hyponatremia, Hyperglycemia, Diabetes, Sacroiliitis Patient Disposition: Admitted As Inpatient Discharge Instructions Interventions: ED Discharge Assessment Last Done: 01/01/19 05:09 Discharge Problem: Leukocytosis Qualifiers: Leukocytosis type: unspecified Qualified Code(s): D72.829 - Elevated white blood cell count, unspecified Diabetes Qualifiers: Diabetes mellitus type: type 1 Diabetes mellitus complication status: without complication Qualified Code(s): E10.9 - Type 1 diabetes mellitus without complications The scribe's documentation has been prepared under my direction and personally reviewed by me in its entirety. I confirm that the note above accurately reflects all work, treatment, procedures, and medical decision making performed by me.
[2019-01-01] MEDS ORDERED: DEXTROSE 50% 50 ML SYRINGE IV PRN (05:28)
[2019-01-01] MEDS ORDERED: GLUCOSE 40% GEL 15 GM TUBE PO PRN (05:28)
[2019-01-01] MEDS ORDERED: GLUCAGON FOR INJ 1 MG VIAL SQ PRN (05:28)
[2019-01-01] MEDS ORDERED: GLUCOSE 10 TABS/TUBE PO PRN (05:28)
[2019-01-01] MEDS ORDERED: CARBOHYDRATES FOR HYPOGLYCEMIA PO PRN (05:28)
[2019-01-01] MEDS ORDERED: ACETAMINOPHEN 325 MG TAB PO PRN ×2 (05:28→21:00)
--- NOTE | 2019-01-01 06:01 | Billing Data ---
Coding Level of Care Code 20753 Initial Inpt Care Lvl 2
[2019-01-01] MEDS ORDERED: INFLUENZA ADMINISTRATION CHARGE ONE (07:00)
[2019-01-01] MEDS ORDERED: INFLUENZA VIRUS QUAD VACCINE 0.5 ML SYR IM ONE (07:00)
--- NOTE | 2019-01-01 07:09 | Magnetic Resonance Report ---
MR lumbar spine wo/w con CLINICAL HISTORY: Low back pain with bilateral leg radiculopathy. TECHNIQUE: Sagittal and axial T1, T2 and STIR images were obtained. Images were acquired before and after the administration of 6.5 cc of intravenous Gadavist COMPARISON STUDY: No previous studies for comparison. OBSERVATIONS: There is marrow edema and enhancement involving the left sacrum which is only partially visualized. T his could indicate a sacroiliitis. Dedicated imaging of the sacroiliac joints is recommended. Vertebr al body marrow signal appears normal. L1-2: No disc protrusions or extrusions. No evidence of spinal canal or neural foraminal compromise. L2-3: No disc protrusions or extrusions. No evidence of spinal canal or neural foraminal compromise. L3-4: No disc protrusions or extrusions. No evidence of spinal canal or neural foraminal compromise. L4-5: There is a minimal circumferential disc bulge. There is no significant spinal or foraminal sten osis L5-S1: No disc protrusions or extrusions. No evidence of spinal canal or neural foraminal compromise. Postcontrast images reveal no pathologically enhancing epidural lesions. The conus medullaris and cauda equina appear normal. IMPRESSION: 1. Partially visualized marrow edema and enhancement involving the sacral side of the left SI joint. This is incompletely evaluated on this study, but could be indicative of sacroiliitis. Dedicated imag ing of the sacroiliac joints is recommended. 2. Minimal L4-5 disc bulge. Otherwise normal MRI the lumbar spine Electronically signed by: Lamberto Méndez M.D. 01/01/2019 7:07 AM
--- NOTE | 2019-01-01 07:21 | CT Scan Report ---
ABDOMEN AND PELVIS CT WITH IV CONTRAST CT DOSE: 283.81 mGy.cm HISTORY: Bilateral sacroiliac joint pain. TECHNIQUE: Multiaxial CT images of the abdomen and pelvis were performed following the use of intrave nous contrast. A dose lowering technique was utilized adhering to the principles of ALARA. COMPARISON STUDY: Lumbar spine MRI 01/01/2019. FINDINGS: The lung bases are clear. No pneumoperitoneum. No pneumatosis. Mild sclerosis and irregular ity at the bilateral sacroiliac joints. This favors a bilateral sacroiliitis. This is most pronounced on the left. The liver, gallbladder, pancreas, spleen, and adrenal glands are unremarkable. No retro peritoneal lymphadenopathy. The kidneys enhance normally. No hydronephrosis. Normal bladder. No bowel wall thickening or obstruction. A left perianal Seton suture is noted. No clear perianal abscess at this time. IMPRESSION: 1. Sclerosis and mild irregularity within the bilateral sacroiliac joints suggestive of a sacroiliiti s. 2. No bowel wall thickening or obstruction. 3. A left perianal Seton suture is noted. No clear perianal abscess at this time Electronically signed by: Param Curtis M.D. 01/01/2019 7:20 AM
[2019-01-01] MEDS: NAPROXEN 250 MG TAB PO SCH ×2 (08:41→20:53)
[2019-01-01] MEDS: INSULIN ASPART 100 UNITS/ML 3 ML PEN SC SCH ×4 (08:45→20:53)
[2019-01-01] MEDS ORDERED: INSULIN GLARGINE SOLOSTAR 100 UNITS/ML 3 ML PEN SC SCH ×4 (09:00→21:00)
[2019-01-01 12:13] LABS: Basophils # (auto) 0.03 K/uL (0-0.2); Basophils % (auto) 0.2 %; Eosinophils # (auto) 0.03 K/uL (0-0.5); Eosinophils % (auto) 0.2 %; Hematocrit (blood only) 36.4 % (42-52); Hemoglobin 12.7 g/dL (14.0-18.0); Immature Granulocytes # (auto) 0.05 K/uL (0.00-0.02); Immature Granulocytes % (auto) 0.3 %; Lymphocytes # (auto) 1.44 K/uL (1.2-3.4); Lymphocytes % (auto) 8.3 %; Mean Corpuscular Hemoglobin 28.9 pg (25-34); Mean Corpuscular Hgb Conc 34.9 g/dL (32-36); Mean Corpuscular Volume 82.9 fL (80-100); Mean Platelet Volume 9.3 fL (7.4-10.4); Monocytes # (auto) 1.38 K/uL (0.11-0.59); Monocytes % (auto) 7.9 %; Neutrophils # (auto) 14.52 K/uL (1.4-6.5); Neutrophils % (auto) 83.1 %; Platelet Count 367 K/uL (130-400); RDW Coefficient of Variation 13.1 % (11.5-14.5); RDW Standard Deviation 39.3 fL (36.4-46.3); Red Blood Count 4.39 M/uL (4.7-6.1); White Blood Count 17.45 K/uL (4.8-10.8)
[2019-01-01 12:42] LABS: BUN Creatinine Ratio 14.5 (10-20); Calcium 8.4 mg/dl (8.5-10.1); Creatinine Clr Calc Pharmacy 133.5 ml/min; Est GFR (Non-African American) 124.3
[2019-01-01 12:58] LABS: Beta-Hydroxybutyrate 22.04 mg/dl (0.2-2.81)
[2019-01-01] MEDS ORDERED: KETOROLAC TROMETHAMINE 15 MG/ML VIAL IV PRN (14:30)
[2019-01-01] MEDS: ACETAMINOPHEN 325 MG TAB PO SCH ×3 (16:20→23:32)
[2019-01-01] MEDS: LIDOCAINE 5% 1 PATCH TD SCH (16:21)
--- NOTE | 2019-01-01 17:09 | Hospitalist Progress Note ---
Date of Service January 01, 2019 Assessment & Plan (1) Hyperglycemia: Terrence is a 23-year-old with a history of type 1 diabetes mellitus who presents to the emergency department due to a 1 week history of back pain that radiates into his legs found to have sacroiliitis on imaging. Sacroiliitis -no red flag symptoms or signs to suggest cauda equina syndrome -MRI of lumbar spine suggestive of sacroiliitis, patient does not have a history of the same -CT abdomen and pelvis also showed sclerosis and erosive changes in b/l iliac bones along SI joints, consistent with sacroiliitis -Patient has elevated inflammatory markers, including elevated ESR >90, CRP of 15.1 and platelets of 454. CK negative -Patient also has leukocytosis of 19.21 and subsequently had blood cultures drawn in the ER (suspect this is elevated secondary to steroid usage as opposed to infection) -Given his MRI/CT did not show any evidence of infection/abscess, this is unlikely to be secondary to infection. Will hold off on further antibiotics -Start naproxen 500 mg twice daily for sacroiliitis. Added Lidocaine patch, JC Tylenol 650 mg TID, IV Toradol prn -Given h/o DM1, likely to have autoimmune background as etiology. Pt to be d/c tomorrow once pain under control and go straight to Rheum outpt w/ Dr. Vegas at 2PM appt for further workup Hyperglycemia, on a background of type 1 diabetes mellitus -Glucose level 434 on presentation to ER - trending down and stabillizing -Beta hydroxybutyric acid 33.5 -Suspect that this is likely related to recent steroid usage -Patient normally takes 40 units of long-acting insulin qhs, and also has a sliding scale insulin -Appreciate pharmacy glycemic consult FEN/GI: DM Diet CODE STATUS: Full DVT prophylaxis: SCDs Disposition: Admit to med/surg. Anticipate d/c tomorrow Supervising Physician Co-Signing Physician Notes I personally examined the patient and verified all valdes points of history and exam, discussed case, and agree with decision making with Dr Ruiz. feeling about the same. pain still not great but livable. hurts to move. woke up one morning a little over a week ago - pain there but mild, just escalated daily without any clear provoking factors. leg pain came later thinks probably from moving different to compensate for back pain. never bloody diarrhea, never really any meaningful lower gi symptoms, has never needed colo vitals noted nad but when moves appears in discomfort. heent nc at mmm. breath ing unlabored no accessory muscles good efffort, SI joints tender bilaterally without any crepitus or bony tenderness. Bilateral lower extremity muscle tenderness without any crepitus or edema, not exquisite tenderness just a general soreness to palpation. No rashes, no focal neuro deficits. Sacroiliitisdoes not appear to be infectious, no clear septic signs or symptoms. His white count can be far better explained by his recent steroid course, cultures negative to date but are still pending. Concern would be concomitant autoimmune disease given his type 1 diabetes, with something such as ankylosing spondylitis versus rheumatoid arthritis being of concern. Discussed case with rheumatology through the day, recommended HLA-B27 (but noted that if the work-up would be able to be facilitated to be an outpatient results would be reported much quicker in the outpatient lab), he also noted giving a trial of Medrol IV, as sometimes rheumatologic conditions for no clear reason seem to respond better to Medrol than prednisone. Escalate pain control, work towards discharge once pain under better control, hopefully for expeditious rheumatologic work-up. Otherwise as above. Subjective 23 yo M found in bed this AM in NAD. No reported overnight events. Notes pain improved from admission, now 5/10 but still not controlled. Tolerating PO intake. Ok with d/c tomorrow with rheum f/u. No other acute concerns or complaints. Review of Systems Review of Systems: All systems reviewed & are unremarkable except as noted in HPI & below Physical Exam Constitutional: WD/WN, vitals as above Eyes: PERRL, conjunctivae normal, anicteric sclerae ENMT: external ear and nose normal, oropharynx normal Respiratory: normal respiratory effort, lungs clear to auscultation Cardiovascular: RRR, no murmur, no edema Gastrointestinal (Abdomen): normal bowel sounds, soft, nontender, no hepatosplenomegaly Musculoskeletal: tenderness over b/l SI joints Skin: no rashes, warm and dry Psychiatric: A+Ox3, euthymic affect Results & Data Vital Signs (Past 12 Hours) Vital Signs Temp Pulse Pulse Resp BP BP Pulse Ox 01/01/19 15:28 68 01/01/19 07:01 37.1 C 95 H 16 122/78 95 01/01/19 05:28 36.9 C 106 H 20 143/83 H 100 01/01/19 05:09 100 H 18 136/87 97 Laboratory Results Laboratory Results - last 24 hr 01/01/19 01/01/19 01/01/19 00:11 00:11 00:11 WBC 19.21 H RBC 4.95 Hgb 14.1 Hct 40.7 L MCV 82.2 MCH 28.5 MCHC 34.6 RDW Std Deviation 39.3 RDW Coeff of Pablo 12.9 Plt Count 454 H MPV 9.1 Immature Gran % (Auto) 0.5 Neut % (Auto) 79.4 Lymph % (Auto) 11.9 [place] % (Auto) 7.8 Eos % (Auto) 0.2 Baso % (Auto) 0.2 Immature Gran # (Auto) 0.09 H Neut # (Auto) 15.26 H Lymph # (Auto) 2.29 [place] # (Auto) 1.50 H Eos # (Auto) 0.04 Baso # (Auto) 0.03 ESR > 90 H Sodium 128 L Potassium 4.2 Chloride 90 L Carbon Dioxide 26 Anion Gap 12.0 H BUN 15 Creatinine 1.03 Est Cr Clr Drug Dosing 105.7 Est GFR ( Amer) 119.0 Est GFR (Non-Af Amer) 102.6 BUN/Creatinine Ratio 14.2 Glucose 434 H* POC Glucose Calcium 9.4 Total Bilirubin 0.6 AST < 3 L ALT 11 L Alkaline Phosphatase 199 H Total Creatine Kinase 18 L C-Reactive Protein 15.10 H Total Protein 8.7 H Albumin 3.0 L Globulin 5.7 H Albumin/Globulin Ratio 0.5 L Lipase 68 L Beta-Hydroxybutyric Acd 33.51 H 01/01/19 01/01/19 01/01/19 02:01 02:41 03:11 WBC RBC Hgb Hct MCV MCH MCHC RDW Std Deviation RDW Coeff of Pablo Plt Count MPV Immature Gran % (Auto) Neut % (Auto) Lymph % (Auto) [place] % (Auto) Eos % (Auto) Baso % (Auto) Immature Gran # (Auto) Neut # (Auto) Lymph # (Auto) [place] # (Auto) Eos # (Auto) Baso # (Auto) ESR Sodium Potassium Chloride Carbon Dioxide Anion Gap BUN Creatinine Est Cr Clr Drug Dosing Est GFR ( Amer) Est GFR (Non-Af Amer) BUN/Creatinine Ratio Glucose POC Glucose 415 H* 325 H* 270 H Calcium Total Bilirubin AST ALT Alkaline Phosphatase Total Creatine Kinase C-Reactive Protein Total Protein Albumin Globulin Albumin/Globulin Ratio Lipase Beta-Hydroxybutyric Acd 01/01/19 01/01/19 01/01/19 03:40 07:28 11:51 WBC RBC Hgb Hct MCV MCH MCHC RDW Std Deviation RDW Coeff of Pablo Plt Count MPV Immature Gran % (Auto) Neut % (Auto) Lymph % (Auto) [place] % (Auto) Eos % (Auto) Baso % (Auto) Immature Gran # (Auto) Neut # (Auto) Lymph # (Auto) [place] # (Auto) Eos # (Auto) Baso # (Auto) ESR Sodium Potassium Chloride Carbon Dioxide Anion Gap BUN Creatinine Est Cr Clr Drug Dosing Est GFR ( Amer) Est GFR (Non-Af Amer) BUN/Creatinine Ratio Glucose POC Glucose 251 H 282 H 349 H* Calcium Total Bilirubin AST ALT Alkaline Phosphatase Total Creatine Kinase C-Reactive Protein Total Protein Albumin Globulin Albumin/Globulin Ratio Lipase Beta-Hydroxybutyric Acd 01/01/19 01/01/19 01/01/19 11:53 12:01 12:01 WBC 17.45 H RBC 4.39 L Hgb 12.7 L Hct 36.4 L MCV 82.9 MCH 28.9 MCHC 34.9 RDW Std Deviation 39.3 RDW Coeff of Pablo 13.1 Plt Count 367 MPV 9.3 Immature Gran % (Auto) 0.3 Neut % (Auto) 83.1 Lymph % (Auto) 8.3 [place] % (Auto) 7.9 Eos % (Auto) 0.2 Baso % (Auto) 0.2 Immature Gran # (Auto) 0.05 H Neut # (Auto) 14.52 H Lymph # (Auto) 1.44 [place] # (Auto) 1.38 H Eos # (Auto) 0.03 Baso # (Auto) 0.03 ESR Sodium 129 L Potassium 4.0 Chloride 96 L Carbon Dioxide 24 Anion Gap 9.0 BUN 12 Creatinine 0.84 Est Cr Clr Drug Dosing 133.5 Est GFR ( Amer) 144.0 Est GFR (Non-Af Amer) 124.3 BUN/Creatinine Ratio 14.5 Glucose 323 H* POC Glucose 308 H* Calcium 8.4 L Total Bilirubin AST ALT Alkaline Phosphatase Total Creatine Kinase C-Reactive Protein Total Protein Albumin Globulin Albumin/Globulin Ratio Lipase Beta-Hydroxybutyric Acd 22.04 H 01/01/19 16:46 WBC RBC Hgb Hct MCV MCH MCHC RDW Std Deviation RDW Coeff of Pablo Plt Count MPV Immature Gran % (Auto) Neut % (Auto) Lymph % (Auto) [place] % (Auto) Eos % (Auto) Baso % (Auto) Immature Gran # (Auto) Neut # (Auto) Lymph # (Auto) [place] # (Auto) Eos # (Auto) Baso # (Auto) ESR Sodium Potassium Chloride Carbon Dioxide Anion Gap BUN Creatinine Est Cr Clr Drug Dosing Est GFR ( Amer) Est GFR (Non-Af Amer) BUN/Creatinine Ratio Glucose POC Glucose 239 H Calcium Total Bilirubin AST ALT Alkaline Phosphatase Total Creatine Kinase C-Reactive Protein Total Protein Albumin Globulin Albumin/Globulin Ratio Lipase Beta-Hydroxybutyric Acd Medications Administered Current Inpatient Medications Acetaminophen (Tylenol) 650 mg PO Q4H [facility] Stop: 01/31/19 15:59 Last Admin: 01/01/19 16:20 Dose: 650 mg Documented by: Acetaminophen (Tylenol) 650 mg PO TID PRN PRN Reason: pain/fever Stop: 01/31/19 20:59 Dextrose (Dextrose 50%) 25 - 50 ml IV UD PRN; Protocol PRN Reason: Hypoglycemia Protocol Stop: 01/31/19 05:27 Gadobutrol (Gadavist 65ml) 6.5 ml IV ONCE PRN PRN Reason: Interaction Checking Stop: 01/05/19 01:19 Last Admin: 01/01/19 01:21 Dose: 6.5 ml Documented by: Glucagon (Glucagen) 1 mg SQ UD PRN; Protocol PRN Reason: Hypoglycemia Protocol Stop: 01/31/19 05:27 Glucose (Glucose 40%) 15 - 30 gm PO UD PRN; Protocol PRN Reason: Hypoglycemia Protocol Stop: 01/31/19 05:27 Glucose (Dex4 Glucose) 4 - 8 tabs PO UD PRN; Protocol PRN Reason: Hypoglycemia Protocol Stop: 01/31/19 05:27 Insulin Aspart (Novolog Flexpen) 0 units SC ACHS JC Stop: 01/31/19 07:29 Last Admin: 01/01/19 12:30 Dose: 21 units Documented by: Insulin Glargine (Lantus Solostar Pen) 40 units SC HS [facility] Stop: 01/31/19 16:29 Ketorolac Tromethamine (Toradol) 15 mg IV Q6H PRN PRN Reason: Pain Stop: 01/06/19 14:29 Last Admin: 01/01/19 15:01 Dose: 15 mg Documented by: Lidocaine (Lidoderm 5%) 1 patch TD QAM [facility] Stop: 01/31/19 14:59 Last Admin: 01/01/19 16:21 Dose: 1 patch Documented by: Miscellaneous (Carbohydrates For Hypoglycemia) 15 - 30 gm PO UD PRN PRN Reason: Hypoglycemia Protocol Stop: 01/31/19 05:27 Miscellaneous (Remove Lidoderm Patch) 1 ea N/A DAILY@2100 [facility] Stop: 01/31/19 20:59 Naproxen (Naprosyn) 500 mg PO BID [facility] Stop: 01/31/19 08:59 Last Admin: 01/01/19 08:41 Dose: 500 mg Documented by: Resident Activity Tracking Resident Involvement: Resident Care Provided Care Provided: Adult Hospital Medicine
[2019-01-02] MEDS: ACETAMINOPHEN 325 MG TAB PO SCH (04:57)
[2019-01-02 05:57] LABS: Basophils # (auto) 0.02 K/uL (0-0.2); Basophils % (auto) 0.2 %; Eosinophils # (auto) 0.08 K/uL (0-0.5); Eosinophils % (auto) 0.6 %; Hematocrit (blood only) 36.2 % (42-52); Hemoglobin 12.3 g/dL (14.0-18.0); Immature Granulocytes # (auto) 0.04 K/uL (0.00-0.02); Immature Granulocytes % (auto) 0.3 %; Mean Corpuscular Hemoglobin 27.8 pg (25-34); Mean Corpuscular Volume 81.7 fL (80-100); Mean Platelet Volume 9.1 fL (7.4-10.4); Monocytes # (auto) 1.45 K/uL (0.11-0.59); Monocytes % (auto) 11.1 %; Neutrophils % (auto) 74.8 %; Platelet Count 363 K/uL (130-400); RDW Coefficient of Variation 13.1 % (11.5-14.5); RDW Standard Deviation 39.6 fL (36.4-46.3); Red Blood Count 4.43 M/uL (4.7-6.1); White Blood Count 13.09 K/uL (4.8-10.8)
[2019-01-02 06:36] LABS: BUN Creatinine Ratio 16.1 (10-20); Blood Urea Nitrogen 10 mg/dl (7-18); Calcium 8.7 mg/dl (8.5-10.1); Carbon Dioxide 28 mmol/L (21-32); Chloride 103 mmol/L (98-107); Creatinine Clr Calc Pharmacy 177.9 ml/min; Est GFR (African American) > 150.0; Est GFR (Non-African American) 139.9; Glucose 191 mg/dl (70-99); Potassium 3.3 mmol/L (3.5-5.1); Sodium 136 mmol/L (136-145)
[2019-01-02] MEDS ORDERED: POTASSIUM CHLORIDE 20 MEQ TABCR PO STA (06:50)
[2019-01-02 07:01] LABS: Estimated Average Glucose 278 mg/dl; Hemoglobin A1C 11.3 % (4.5-5.6)
[2019-01-02] MEDS: NAPROXEN 250 MG TAB PO SCH (08:09)
[2019-01-02] MEDS: LIDOCAINE 5% 1 PATCH TD SCH (08:11)
[2019-01-02] MEDS: INSULIN ASPART 100 UNITS/ML 3 ML PEN SC SCH ×2 (09:19→12:12)
[2019-01-02] MEDS ORDERED: methylPREDNISolone 40 MG in DEXTROSE 5% 250 ML IV STA (10:05)
[2019-01-02] MEDS ORDERED: methylPREDNISolone 40 MG in SYRINGE 0 ML IV ONE (10:15)
--- NOTE | 2019-01-02 12:49 | Discharge Summary ---
Date of Service January 02, 2019 Admission HPI Per Admitting Provider Terrence is a 23-year-old with a history of type 1 diabetes mellitus who presents to the emergency department due to a 1 week history of back pain that radiates into his legs. Terrence states that he woke up with this pain approximately 1 week ago. He states that the pain is located in his low back, as well as in his glutes, quads, hamstrings and calves. He states that he was unable to get out of bed due to the pain. He reports that he presented to [facility], who gave him a course of steroids and Flexeril. He states that he took his last pill of steroids this morning. He reports that this helped his symptoms, however they worsened again this morning. He denies any fever or chills. He states that he is able to stand, however his pain is worse with movement. He denies any weakness or numbness of his legs. He denies any difficulty with fecal incontinence or urinary retention. He denies any increase in activity prior to the start of his pain. He denies any recent tick bites. He states he has othe rwise been well. Past medical history: Type 1 diabetes mellitus, perianal abscess, and fistula Past surgical history: Perianal fistula surgery - placement of seton that is due to be removed this summer Medications: Insulin Allergies: No known drug allergies Family history: No family history of inflammatory conditions, or arthritis Social history: Non-smoker, does not use recreational drugs. Drinks alcohol socially, has not had any alcohol in the past 1 week. Principal Diagnosis sacroiliitis Discharge Exam Constitutional WD/WN, vitals as above Eyes PERRL, conjunctivae normal, anicteric sclerae ENMT external ear and nose normal, oropharynx normal Respiratory normal respiratory effort, lungs clear to auscultation Cardiovascular RRR, no murmur, no edema Gastrointestinal (Abdomen) normal bowel sounds, soft, nontender, no hepatosplenomegaly Musculoskeletal SI joint tenderness Skin no rashes, warm and dry Neurologic normal touch/pain/proprioception, CN's II-XI intact bilaterally and deep tendon reflexes 2+ bilaterally Psychiatric A+Ox3, euthymic affect Discharge Data Allergies Allergy/AdvReac Type Severity Reaction Status Date / Time No Known Allergies Allergy Unverified 01/01/19 00:26 Consultations 01/01/19 03:07 ED Decision to Admit Stat 01/01/19 03:18 ED Decision to Admit Stat Ordered Studies 01/01/19 00:42 MR lumbar spine wo/w con Stat 01/01/19 03:02 CT abd pelvis IV con only Urgent Hospital Course (1) Hyperglycemia: Terrence is a 23-year-old with a history of type 1 diabetes mellitus who presents to the emergency department due to a 1 week history of back pain that radiates into his legs found to have sacroiliitis on imaging. The following is the medical management during stay here: Sacroiliitis -no red flag symptoms or signs to suggest cauda equina syndrome -MRI of lumbar spine suggestive of sacroiliitis, patient does not have a history of the same -CT abdomen and pelvis also showed sclerosis and erosive changes in b/l iliac bones along SI joints, consistent with sacroiliitis -Patient has elevated inflammatory markers, including elevated ESR >90, CRP of 15.1 and platelets of 454. CK negative -Patient also has leukocytosis of 19.21 and subsequently had blood cultures drawn in the ER (suspect this is elevated secondary to steroid usage as opposed to infection) -Given his MRI/CT did not show any evidence of infection/abscess, this is unlik luke to be secondary to infection. Will hold off on further antibiotics -Start naproxen 500 mg twice daily for sacroiliitis. Added Lidocaine patch, JC Tylenol 650 mg TID. Received IV Solumedrol 40 mg on day of d/c -Given h/o DM1, likely to have autoimmune background as etiology. Pt to be d/c today once pain under control and go straight to [facility] outpt at 2PM 01/02 appt for further workup for expeditious workup Hyperglycemia, on a background of type 1 diabetes mellitus -Glucose level 434 on presentation to ER - trending down and stabillizing -Beta hydroxybutyric acid 33.5 -Suspect that this is likely related to recent steroid usage -Patient normally takes 40 units of long-acting insulin qhs, and also has a sliding scale insulin -A1C 11.3 DVT prophylaxis: SCDs. At time of d/c, pt had no other acute concerns or complaints. Total Time Total Time Spent Total Time Spent (In Minutes): >30 Discharge Plan Discharge Items Patient Disposition: Home - Self-Care Reason For Visit: hyperglycemia, sacroilitis Discharge Diagnosis: sacroiliitis Activity: Per Instructions section Non-emergency contact: Primary Care Provider Call non-emergency contact if: you have any medication questions, your symptoms worsen and your pain is not controlled Follow-up/Referrals: Phillip Ruiz, [Primary Care Provider] - 01/08/19 9:30 am (Please, follow up with Dr. Errol Ruiz on TuesdayJanuary 08 at 9:30 am. *The office is located in [address] of [facility], next to this hospital. If you need to change this appointment, call the office at [phone].) Diet: Carb Count or DM1 Addtl Attending Provider Instructions: You were admitted for concerns of sacroiliitis (inflammation of your SI joints). This may be due to an underlying autoimmune disorder, and will be worked up by outpatient rheumatology. Please follow the below instructions on discharge: -you have a teacher tutor appt 01/02 on 2PM ([address] [facility] , [place] [address]). At this appt, they will work up/get labs to see if there is any underlying autoimmune disorder that may explain your back pain -you will continue the following medications: tylenol 650 mg 4x/day, lidocaine patch, naproxen 500 mg 2x/day. At your rhuematology appt, they may change the above medication regimen -you have a PCP appt on 01/[address] Ruiz on 930 AM Pending Studies at Discharge: No Stand-Alone Forms: [facility], Work/School Release (Inpt) Medications and DC Order Prescriptions: New naproxen 500 mg tablet 500 mg PO BID Qty: 30 RF: 0 acetaminophen [Tylenol Arthritis Pain] 650 mg tablet extended release 650 mg PO Q8H Qty: 60 RF: 0 lidocaine 5 % adhesive patch,medicated 1 patch TOP DAILY Qty: 15 RF: 0 Continued insulin lispro [Humalog KwikPen Insulin] 100 unit/mL insulin pen See Rx Instructions .ROUTE .COMPLEX RF: 0 cyclobenzaprine 10 mg tablet 10 mg PO BID PRN (Reason: Muscle Spasm) RF: 0 Tresiba FlexTouch U-200 200 unit/mL (3 mL) insulin pen 40 unit subcut HS RF: 0 Discharge Orders: Discharge Order (Routine); Ordered 11/12/19 Ordered By: Phillip Ruiz Admission Data Admit Date/Time: 01/01/19 04:28 Attending Provider: Brad Guajardo Admit Provider: Carrie Marquez Primary Care Provider: Phillip Ruiz Other Providers: Ramiro Shah Other Interventions: Discharge Summary Assessment (RN) Last Done: 01/02/19 12:20 DC Date/Time DO NOT enter until pt leaves facility: 01/02/19 12:55 Supervising Physician Co-Signing Physician Notes I personally examined the patient and verified all valdes points of history and exam, discussed case, and agree with decision making with Dr Ruiz. Pain still fairly bad, but improved some. Does feel like life would be tolerable outside the hospital. Rheumatology updated after extensive discussions yesterday, patient will see rheumatology at 2:00 today. vitals noted nad but when moves appears in discomfort. heent nc at mmm. breathing unlabored no accessory muscles good efffort, is able to walk with some stiffness left leg worse than right. No other new findings on exam. Sacroiliitisdoes not appear to be infectious, no clear septic signs or symptoms. His father questions whether or not it could be Lyme relateda note this is highly unlikely with sacroiliitis, but given that Lyme itself is an extremely common entity it is quite reasonable and worthwhile and we will add on a Lyme titer. We discussed that his situation is still very much "work in progress" but that the best next step is getting a rheumatologic evaluation which will be done better and more efficiently with faster turnaround on lab work when done in the office. Discussed that his situation will need to have ongoing active management with a PCP and rheumatologywhich have been arranged while he still in [place], but whenever he moved to [place] he will definitely need both types of physicians for ongoing care. We also discussed that if things are worsening we will always take him right back here in the hospital if need arises. I doubt this will be the case, but I wanted to ensure that he did not feel that there was any type of a "closed door" Uncontrolled type 1 diabeteswe had a rather extensive discussion on "high sugar clogs arteries" and also got into how to look at basal bolus dosing. Discussed that this will need ongoing management close follow-up and coaching. He expressed a good understanding. Otherwise as above. Resident Activity Tracking Resident Involvement: Resident Care Provided Care Provided: Adult Hospital Medicine
[2019-01-02 13:16] LABS: Lyme Ab IgG w/WB Rflx Negative (Negative); Lyme Ab IgM w/WB Rflx Negative (Negative)
[2019-01-02] MEDS ORDERED: ACETAMINOPHEN 325 MG TAB PO SCH ×2 (14:00)
--- NOTE | 2019-01-03 20:16 | Billing Data ---
Coding Level of Care Code D/C Day Management >30 mins
== END 2019-01-02 12:55 | disposition home or self-care (01) | DRG 546 ==
LOC: ED 23:48 → SUATTDRO 01-01 04:28 → 2N 01-01 04:28 → 4W 01-01 18:41